=== PATIENT | female | born 1985 | race Caucasian/White ===

== ENCOUNTER 2018-05-16 19:10 | Emergency (ER) | payer BC, OTHER ==
[2018-05-16] MEDS ORDERED: IBUPROFEN 600 MG TABLET (FP) PO ONE ×2 (19:29→19:50)
--- NOTE | 2018-05-16 19:45 | PDOC ---
History of Present Illness <SonyavandanaLarisa - Last Filed: 05/16/18 19:40> - General History Source: Patient Exam Limitations: No Limitations - History of Present Illness Initial Comments: 05/16/18 19:47 The patient is a 32 year old female with no PMH who presents to the ER with right ankle swelling s/p foot injury yesterday. Patient states she was walking and her right foot rolled over. Patient is ambulating with a limp. Patient last took aleve at noon today. Patient has not followed up with ortho recently. The patient denies chest pain, shortness of breath, headache and dizziness. Denies fever, chills, nausea, vomit, diarrhea and constipation. Denies dysuria, frequency, urgency and hematuria. Allergies: NKA Past surgical history: None reported. Social history: No reported alcohol, drug or cigarette use. <Haleigh Gibbons - Last Filed: 05/16/18 20:07> - General Chief Complaint: Injury Stated Complaint: RT ANKLE PAIN Past History - Past Medical History COPD: No - Suicide/Smoking/Psychosocial Hx Smoking Status: Yes Smoking History: Current every day smoker Number of Cigarettes Smoked Daily: 20 <Larisa Ojeda - Last Filed: 05/16/18 19:40> <Haleigh Gibbons - Last Filed: 05/16/18 20:07> - Past Medical History Allergies/Adverse Reactions: Allergies Allergy/AdvReac Type Severity Reaction Status Date / Time No Known Allergies Allergy Verified 05/16/18 19:12 Home Medications: Ambulatory Orders Ibuprofen [Motrin -] 600 mg PO TID #90 tablet MDD 3 05/16/18 Naproxen Sodium [Aleve] 220 mg PO ASDIR 05/16/18 Review of Systems - Review of Systems Able to Perform ROS?: Yes Comments:: 05/16/18 19:47 ADULT ROS GENERAL/CONSTITUTIONAL: No fever or chills. No weakness. HEAD, EYES, EARS, NOSE AND THROAT: No change in vision. No ear pain or discharge. No sore throat. CARDIOVASCULAR: No chest pain or shortness of breath. RESPIRATORY: No cough, wheezing, or hemoptysis. GASTROINTESTINAL: No nausea, vomiting, diarrhea or constipation. GENITOURINARY: No dysuria, frequency, or change in urination. MUSCULOSKELETAL: (+) Right ankle pain. No neck or back pain. SKIN: No rash NEUROLOGIC: No headache, vertigo, loss of consciousness, or change in strength/ sensation. ENDOCRINE: No increased thirst. No abnormal weight change. HEMATOLOGIC/LYMPHATIC: No anemia, easy bleeding, or history of blood clots. ALLERGIC/IMMUNOLOGIC: No hives or skin allergy. <Haleigh Gibbons - Last Filed: 05/16/18 20:07> *Physical Exam - Physical Exam Comments: 05/16/18 19:47 ADULT EXAM GENERAL: Awake, alert, and fully oriented, in no acute distress HEAD: No signs of trauma EYES: PERRLA, EOMI, sclera anicteric, conjunctiva clear ENT: Auricles normal inspection, hearing grossly normal, nares patent. Moist mucosa NECK: Normal ROM, supple, no lymphadenopathy, JVD, or masses LUNGS: Breath sounds equal, clear to auscultation bilaterally. No wheezes, and no crackles HEART: Regular rate and rhythm, normal S1 and S2, no murmurs, rubs or gallops ABDOMEN: Soft, nontender, normoactive bowel sounds. No guarding, no rebound. No masses EXTREMITIES: DP/PT pulses 2+ and symmetric. Warm and well perfused. (+) Right foot tenderness over the talofibular ligament. Knee is nontender. Neurovascularly intact. NEUROLOGICAL: Moves all extremities. Normal speech, normal gait SKIN: Warm, Dry, normal turgor, no rashes or lesions noted. <Haleigh Gibbons - Last Filed: 05/16/18 20:07> ED Treatment Course - RADIOLOGY Radiology Studies Ordered: Category Date Time Status ANKLE-RIGHT [RAD] Stat Radiology 05/16/18 19:29 Ordered <Larisa Ojeda - Last Filed: 05/16/18 19:40> Medical Decision Making - Medical Decision Making 05/16/18 19:40 89 yo s/p ankle injury yesterday. was standing and rolled ankle. c/o lateral ankle and foot pain, iced and elevat=ed. took aleve. on exam mild talofibular lignament pain .no lat or med mall ttp. knee nt from. plan xray ankle, motrin, dc on crutches ortho fu. <Larisa Ojeda - Last Filed: 05/16/18 19:40> *DC/Admit/Observation/Transfer - Discharge Dispostion Decision to Admit order: No <Larisa Ojeda - Last Filed: 05/16/18 19:40> - Attestations Scribe Attestion: 05/16/18 19:48 Documentation prepared by Haleigh Gibbons, acting as associate medical director for Larisa Ojeda MD. <Haleigh Gibbons - Last Filed: 05/16/18 20:07> Diagnosis at time of Disposition: Ankle sprain - Discharge Dispostion Condition at time of disposition: Improved - Prescriptions Prescriptions: Ibuprofen [Motrin -] 600 mg PO TID #90 tablet MDD 3 - Referrals Referrals: John Anaya MD [Staff Physician] - - Patient Instructions Printed Discharge Instructions: Ankle Sprain Additional Instructions: you should follow up with DR anaya, orthopedics. ice and elevate. use crutches as needed. take motrin 600 mg every 8 hrs as needed for pain. return for any problems or concerns.
[2018-05-16 19:55] VITALS: BP 148/65; PULSE 78; TEMP 97.8; BMI 45.1
== END 2018-05-16 20:40 | disposition home or self-care (01) ==
LOC: FER 19:10
DX: S93.401A Sprain of unspecified ligament of right ankle, initial encounter (principal); X58.XXXA Exposure to other specified factors, initial encounter; Y93.9 Activity, unspecified; Y92.89 Other specified places as the place of occurrence of the external cause; F17.210 Nicotine dependence, cigarettes, uncomplicated
CPT/HCPCS: 73610-TC-RT-FY; 99282-25

== ENCOUNTER 2018-05-23 18:08 | Emergency (ER) | payer BC ==
[2018-05-23 18:56] VITALS: BP 110/78; PULSE 98; TEMP 98.3; BMI 45.1
[2018-05-23] MEDS ORDERED: SODIUM CHLORIDE 1,000 ML IV STA (19:42)
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
--- NOTE | 2018-05-24 09:20 | EKG ---
Test Reason : Blood Pressure : / mmHG Vent. Rate : 085 BPM Atrial Rate : 085 BPM P-R Int : 154 ms QRS Dur : 080 ms QT Int : 376 ms P-R-T Axes : 034 007 030 degrees QTc Int : 447 ms NORMAL SINUS RHYTHM MODERATE VOLTAGE CRITERIA FOR LVH, MAY BE NORMAL VARIANT BORDERLINE ECG NO PREVIOUS ECGS AVAILABLE Confirmed by NEAL RAINEY, BRIELLE ([id number]) on 05/24/2018 9:20:25 AM Referred By: Confirmed By:BRIELLE DE JESUS MD
== END 2018-05-23 20:08 | disposition left against medical advice (07) ==
LOC: JER 18:08
DX: R55 Syncope and collapse (principal); F17.210 Nicotine dependence, cigarettes, uncomplicated
CPT/HCPCS: 93005; 93010; 99283-25